=== PATIENT | male | born 1960 | race African-American/Black ===

== ENCOUNTER → 2018-02-13 | Outpatient (CLI) | payer BC ==
--- NOTE | 2018-02-13 15:57 | RADIOLOGY REPORT (SQ) ---
EXAM DESCRIPTION: CHEST PA/LATERAL COMPLETED DATE/TIME: 02/13/2018 3:44 pm REASON FOR STUDY: SHORTNESS OF BREATH COMPARISON: 02/25/2018 EXAM PARAMETERS: NUMBER OF VIEWS: two views TECHNIQUE: Digital Frontal and Lateral radiographic views of the chest acquired. RADIATION DOSE: NA LIMITATIONS: none FINDINGS: LUNGS AND PLEURA: No opacities, masses or pneumothorax. No pleural effusion. MEDIASTINUM AND HILAR STRUCTURES: No masses or contour abnormalities. HEART AND VASCULAR STRUCTURES: Stable appearance. No evidence for failure. BONES: No acute findings. HARDWARE: None in the chest. OTHER: No other significant finding. IMPRESSION: 1 No significant interval changes since the previous examination dated 02/25/2011. No ac bala pulmonary findings. TECHNICAL DOCUMENTATION: JOB ID: [id number] [employer]- All Rights Reserved Reading location - IP/workstation name: [email or web address]
== END ==
LOC: OD 15:34
PROVIDERS: ATTEND Internal Medicine
DX: R06.02 Shortness of breath (principal)
CPT/HCPCS: 71046

== ENCOUNTER → 2018-04-17 | Outpatient (CLI) | payer BC ==
[2018-04-17 13:24] VITALS: BP 138/84
--- NOTE | 2018-04-18 07:47 | XCELERA REPORT ---
[address] [address] Lower Extremity Venous Evaluation Name: JAIRO ALLEN Age: 57 yrs Gender: Male : 1960 Patient Status: Outpatient Patient Location: Study Date: 04/17/2018 02:26 PM Procedure: Color flow and duplex imaging of the veins of the left lower extremity as well as the right Common Femoral vein. Reason For Study: LLE LOCALIZED SWELLING Ordering Physician: YAZMIN NEWBY Performed By: Yoselin Hastings Right Sided Venous Evaluation The right common femoral vein is fully compressible. Spontaneous and phasic flow is present in the right common femoral vein. Left Sided Venous Evaluation Normal vessel filling wall to wall, compression and augmentation as well as Colour flow down to the infrageniculate veins. Interpretation Summary No duplex evidence of DVT or obstruction in the left lower extremity nor in the right Common Femoral vein. : YAZMIN NEWBY > Rip Orourke
== END ==
LOC: SP 13:45
PROVIDERS: ATTEND Internal Medicine
DX: R22.42 Localized swelling, mass and lump, left lower limb (principal)
CPT/HCPCS: 93971

== ENCOUNTER 2018-08-23 12:27 | Observation (INO) | payer BC ==
[2018-08-23 14:06] LABS: ABSOLUTE BASOPHILS # (AUTO) 0.1 10^3/uL (0.0-0.2); ABSOLUTE EOSINOPHILS # (AUTO) 0.1 10^3/uL (0.0-0.6); ABSOLUTE LYMPHOCYTES (AUTO) 1.7 10^3/uL (0.5-4.7); ABSOLUTE MONOCYTES (AUTO) 0.4 10^3/uL (0.1-1.4); BASOPHILS % (AUTO) 1.3 % (0-2); EOSINOPHILS % (AUTO) 1.8 % (0-6); HEMATOCRIT 41.7 % (37.9-51.0); HEMOGLOBIN 14.2 g/dL (13.5-17.0); LYMPHOCYTES % (AUTO) 32.4 % (13-45); MEAN CORPUSCULAR HEMOGLOBIN 28.1 pg (27.0-33.4); MEAN CORPUSCULAR VOLUME 83 fl (80-97); MONOCYTES % (AUTO) 7.9 % (3-13); PLATELET COUNT 259 10^3/uL (150-450); RED BLOOD COUNT 5.05 10^6/uL (4.35-5.55); RED CELL DISTRIBUTION WIDTH 13.9 % (11.5-14.0); SEGMENTED NEUTROPHILS % (AUTO) 56.6 % (42-78); TOTAL CELLS COUNTED % (AUTO) 100 %; WHITE BLOOD COUNT 5.3 10^3/uL (4.0-10.5)
--- NOTE | 2018-08-23 14:21 | RADIOLOGY REPORT (SQ) ---
EXAM DESCRIPTION: CHEST 2 VIEWS COMPLETED DATE/TIME: 08/23/2018 2:11 pm REASON FOR STUDY: chest pain COMPARISON: 02/25/2010 EXAM PARAMETERS: NUMBER OF VIEWS: two views TECHNIQUE: Digital Frontal and Lateral radiographic views of the chest acquired. RADIATION DOSE: NA LIMITATIONS: none FINDINGS: LUNGS AND PLEURA: No opacities, masses or pneumothorax. No pleural effusion. MEDIASTINUM AND HILAR STRUCTURES: No masses or contour abnormalities. HEART AND VASCULAR STRUCTURES: Stable heart size. No evidence for failure. BONES: No acute findings. HARDWARE: None in the chest. OTHER: No other significant finding. IMPRESSION: NO ACUTE RADIOGRAPHIC FINDING IN THE CHEST. TECHNICAL DOCUMENTATION: JOB ID: [id number] [employer]- All Rights Reserved Reading location - IP/workstation name: [email or web address]
[2018-08-23 14:25] LABS: ALANINE AMINOTRANSFERASE 30 U/L (21-72); ALBUMIN 3.9 g/dL (3.5-5.0); ALKALINE PHOSPHATASE 69 U/L (38-126); ANION GAP 10 (5-19); ASPARTATE AMINO TRANSFERASE 24 U/L (17-59); BILIRUBIN,DIRECT 0.3 mg/dL (0.0-0.4); BILIRUBIN,TOTAL 0.5 mg/dL (0.2-1.3); BLOOD UREA NITROGEN 14 mg/dL (7-20); CALCIUM 9.6 mg/dL (8.4-10.2); CARBON DIOXIDE 28 mmol/L (22-30); CHLORIDE 103 mmol/L (98-107); CREATINE KINASE 168 U/L (55-170); GLUCOSE 137 mg/dL (75-110); POTASSIUM 4.4 mmol/L (3.6-5.0); SODIUM 140.7 mmol/L (137-145); TOTAL PROTEIN 6.8 g/dL (6.3-8.2)
[2018-08-23 14:44] LABS: CREATINE KINASE MB 0.81 ng/mL (<4.55)
[2018-08-23 14:49] LABS: TROPONIN I < 0.012 ng/mL
[2018-08-23 14:57] LABS: THYROID STIMULATING HORMONE 0.67 uIU/mL (0.47-4.68)
[2018-08-23] MEDS ORDERED: ASPIRIN 81 MG TABLET, ENT COATED PO SCH (17:00)
[2018-08-23] MEDS: METFORMIN HCL 500 MG TABLET PO SCH (17:24)
[2018-08-23] MEDS: ASPIRIN 81 MG TABLET, ENT COATED PO SCH (17:25)
[2018-08-23 19:01] LABS: APPEARANCE,URINE CLEAR; BILIRUBIN,URINE NEGATIVE (NEGATIVE); COLOR,URINE YELLOW; GLUCOSE, URINE NEGATIVE (NEGATIVE); KETONES,URINE NEGATIVE (NEGATIVE); LEUKOCYTE ESTERASE,URINE NEGATIVE (NEGATIVE); NITRITE,URINE NEGATIVE (NEGATIVE); PROTEIN,URINE NEGATIVE (NEGATIVE)
[2018-08-23 21:49] LABS: CREATINE KINASE MB 0.74 ng/mL (<4.55)
[2018-08-23 21:57] LABS: TROPONIN I < 0.012 ng/mL
[2018-08-23] MEDS ORDERED: ATORVASTATIN CALCIUM 40 MG TABLET PO SCH (22:00)
[2018-08-24 05:55] LABS: CREATINE KINASE MB 0.59 ng/mL (<4.55)
[2018-08-24 05:56] LABS: TROPONIN I < 0.012 ng/mL
--- NOTE | 2018-08-24 09:00 | EKG REPORT ---
SEVERITY:- ABNORMAL ECG - SINUS RHYTHM NONSPECIFIC T ABNORMALITIES, DIFFUSE LEADS : Confirmed by: Desi Dc 24-Aug-2018 08:59:54
[2018-08-24] MEDS: METFORMIN HCL 500 MG TABLET PO SCH (10:26)
[2018-08-24] MEDS: ASPIRIN 81 MG TABLET, ENT COATED PO SCH (10:26)
[2018-08-24] MEDS ORDERED: AMINOPHYLLINE INJ/PF 250 MG/10 ML SDV IV ONE (14:03)
[2018-08-24] MEDS ORDERED: REGADENOSON INJ 0.4 MG/5 ML DISP.SYRIN IV ONE (14:03)
[2018-08-24 14:09] LABS: CREATINE KINASE MB 0.69 ng/mL (<4.55)
[2018-08-24 14:13] LABS: TROPONIN I < 0.012 ng/mL
--- NOTE | 2018-08-24 14:36 | DRAGON STRESS TEST REPORT ---
INTRAVENOUS LEXISCAN CARDIOLITE STRESS TEST USING SINGLE PHOTON EMMISION COMPUTERIZED TOMOGRAPHIC. DATE OF PROCEDURE: August 24, 2018, INDICATION : Chest pain CARDIAC RISK FACTORS: Diabetes, hypertension RESTING EKG: Sinus rhythm, minor nonspecific T wave inversion STRESS EKG: No significant ST segment changes noted with LexiScan bolus REASON FOR TERMINATION: Protocol. PROCEDURE REPORT: Baseline heart rate 85 beats per minute with blood pressure of 135/84. Patient had no significant complaints. Patient was bolused with Lexiscan 0.4 mg intravenously followed by saline bolus. Heart rate at 2 minutes post bolus 116 with a blood pressure of 165/82. 3 minutes post bolus heart rate 85 with blood pressure of 136/82. No significant EKG changes were noted. Patient had no significant complaints during the procedure or postprocedure. CONCLUSIONS: Normal EKG and hemodynamic response to IV LexiScan. NUCLEAR DATA: At rest the patient was given 10.79 millicuries of technetium 99 sestamibi injected intravenously. As per protocol rest gated SPECT images were obtained. On day of stress test, the patient was given intravenous LexiScan at a dose of 0.4 mg in 5 mL intravenously, followed by flush with normal saline. Subsequently the stress dose of 31.0 millicuries of technetium 99 sestamibi was injected intravenously. As per protocol stress gated images were obtained. NUCLEAR INTERPRETATION: Both raw and processed data were used for interpretation. Visual, qualitative, computer-generated quantitative data was used. There was good myocardial uptake of technetium compound. Motion artifact and soft tissue attenuations were noted. Increased visceral uptake was noted. No definitive areas of transient perfusion defect noted, No definitive areas of fixed perfusion defect or scars noted. EKG gated imaging showed LV EF at 53 %, rest and stress gated EF similar visually. T. I D. ratio was 1.07. Lung heart ratio noted to be within normal limits 0.35. No significant extracardiac and abnormal radiotracer activities were noted. RV free wall uptake was noted to be WNL. IMPRESSION: Also refer to comments under nuclear interpretation. Also test results needs to be interpreted in the context of pretest probability. 1. No definitive areas of transient perfusion defect noted. 2. There is no definitive scintigraphic evidence of myocardial infarction/scar. 3. EKG gated imaging shows left ventricular ejection fraction of approx. 53 %. 4. Clinical correlation requested as worse disease and or balanced ischemia could be missed. In approximately 10% of the cases Lexiscan may not cause adequate vasodilatory stress. RECOMMENDATIONS: Aggressive risk factor modification and medical management. Further evaluation may be needed if continued symptoms or other high risk indicators are noted on clinical evaluation. Close cardiology follow-up is also recommended. Clinical correlation with echocardiogram derived ejection fraction. Inability to exercise by itself can lead to increased cardiovascular event risks. Consider cardiology consultation and or follow-up if clinically indicated. I am available for cardiology evaluation and consultation if requested by the mailroom courier, unless patient already has a research engineer. Dr. Bob Dc. MRCP Board certified in cardiology and sleep medicine. Board certified in nuclear cardiology, adult echocardiography. MARTY
--- NOTE | 2018-08-24 16:31 | RADIOLOGY REPORT (SQ) ---
EXAM DESCRIPTION: U/S ABDOMEN LIMITED W/O DOP COMPLETED DATE/TIME: 08/24/2018 3:52 pm REASON FOR STUDY: chest pain COMPARISON: Abdominal ultrasound 01/14/2009 TECHNIQUE: Dynamic and static grayscale images acquired of the abdomen and recorded on PACS. Additio nal selected color Doppler and spectral images recorded. LIMITATIONS: Midline bowel gas FINDINGS: PANCREAS: Not visualized due to poor acoustic window from midline bowel gas LIVER: Normal size, diffusely echogenic from fatty infiltration or diffuse hepatocellular disease. LIVER VASCULATURE: Normal directional flow of the main portal vein and hepatic veins. GALLBLADDER: No stones. Normal wall thickness. No pericholecystic fluid. ULTRASOUND-DETECTED CERVANTES'S SIGN: Negative. INTRAHEPATIC DUCTS AND COMMON DUCT: CBD and intrahepatic ducts normal caliber. No filling defects. D istal most common duct at the pancreatic head not well seen INFERIOR VENA CAVA: Normal flow. AORTA: No aneurysm. RIGHT KIDNEY: Normal size. Normal echogenicity. No solid or suspicious masses. No hydronephrosis. No calcifications. PERITONEAL AND RIGHT PLEURAL SPACE: No ascites or effusions. OTHER: No other significant findings. IMPRESSION: Fatty liver No gallstones gallbladder wall thickening or pericholecystic fluid Midline pancreas not well seen TECHNICAL DOCUMENTATION: JOB ID: [id number] [employer] All Rights Reserved Reading location - IP/workstation name: STATEMENT CLERKS MANAGER[facility]
[2018-08-24 16:48] VITALS: BP 153/90
--- NOTE | 2018-08-24 17:22 | PDOC H&P ---
History of Present Illness Admission Date/PCP: 08/23/18 12:27 YAZMIN NEWBY MD History of Present Illness: JAIRO ALLEN is a 58 year old male, he came to the office today for evaluation of chest pain, the chest pain is atypical, it is not provoked by activity and relieved by rest, the chest pain is aggravated with food intake, he has risk factors for ischemic heart disease, is a diabetic, he has hypertension , sedentary lifestyle he was admitted for observation and management, 3 sets of cardiac enzymes negative for acute NV, 12-lead EKG was sinus rhythm there is no acute change. A Lexiscan nuclear stress test was done he demonstrated no definitive areas of transit perfusion no scintigraphic evidence of myocardial infarction. Abdominal sonogram was done, it was negative for gallstones, was found to have fatty liver. Past Medical History Endocrine Medical History: Reports: Diabetes Mellitus Type 2 GI Medical History: Reports: Gastroesophageal Reflux Disease Social History Smoking Status: Former Smoker Family History Family History: Reviewed & Not Pertinent Parental Family History Reviewed: Yes Children Family History Reviewed: Yes Sibling(s) Family History Reviewed.: Yes Medication/Allergy Home Medications: Aspirin [Ecotrin 81 mg EC Tablet] 81 mg PO DAILY 08/23/18 Atorvastatin Calcium [Lipitor 40 mg Tablet] 40 mg PO QHS 08/23/18 Metformin HCl [Glucophage] 1,000 mg PO BID 08/23/18 Omeprazole Magnesium [Acid Buncher Hand] 20 mg PO DAILY #90 capsule. 08/24/18 Allergies/Adverse Reactions: No Known Allergies Allergy (Verified 04/17/18 13:15) Review of Systems Constitutional: ABSENT: chills, fever(s), headache(s), weight gain, weight loss Eyes: ABSENT: visual disturbances Ears: ABSENT: hearing changes Cardiovascular: PRESENT: chest pain. ABSENT: dyspnea on exertion, edema, orthropnea, palpitations Respiratory: ABSENT: cough, hemoptysis Gastrointestinal: ABSENT: abdominal pain, constipation, diarrhea, hematemesis, hematochezia, nausea, vomiting Genitourinary: ABSENT: dysuria, hematuria Musculoskeletal: ABSENT: joint swelling Integumentary: ABSENT: rash, wounds Neurological: ABSENT: abnormal gait, abnormal speech, confusion, dizziness, focal weakness, syncope Psychiatric: ABSENT: anxiety, depression, homidical ideation, suicidal ideation Endocrine: ABSENT: cold intolerance, heat intolerance, menstrual abnormalities, polydipsia, polyuria Hematologic/Lymphatic: ABSENT: easy bleeding, easy bruising, lymphadenopathy Physical Exam Vital Signs: Temp Pulse Resp BP Pulse Ox 97.6 F 78 17 153/90 H 99 08/24/18 15:55 08/24/18 15:55 08/24/18 15:55 08/24/18 15:55 08/24/18 15:55 Intake & Output 08/23/18 08/24/18 08/25/18 06:59 06:59 06:59 Intake Total 475 340 Balance 475 340 Weight 105.8 kg General appearance: PRESENT: no acute distress, well-developed, well-nourished Head exam: PRESENT: atraumatic, normocephalic Eye exam: PRESENT: conjunctiva pink, EOMI, PERRLA Ear exam: PRESENT: normal external ear exam Mouth exam: PRESENT: moist, tongue midline Neck exam: PRESENT: full ROM Respiratory exam: PRESENT: clear to auscultation misha Cardiovascular exam: PRESENT: RRR, +S1, +S2 Pulses: PRESENT: normal dorsalis pedis pul, +2 pedal pulses bilateral Vascular exam: PRESENT: normal capillary refill GI/Abdominal exam: PRESENT: normal bowel sounds, soft Rectal exam: PRESENT: deferred Neurological exam: PRESENT: alert, awake, oriented to person, oriented to place , oriented to time, oriented to situation, CN II-XII grossly intact Psychiatric exam: PRESENT: appropriate affect, normal mood Skin exam: PRESENT: dry, intact, warm Results Laboratory Results: 08/23/18 13:57 08/23/18 13:57 08/23/18 17:30 Urine Color YELLOW Urine Appearance CLEAR Urine pH 6.0 Ur Specific [place] 1.020 Urine Protein NEGATIVE Urine Glucose (UA) NEGATIVE Urine Ketones NEGATIVE Urine Blood NEGATIVE Urine Nitrite NEGATIVE Ur Leukocyte Esterase NEGATIVE Urine WBC (Auto) 1 Urine RBC (Auto) 1 08/23/18 08/23/18 08/23/18 13:57 13:57 21:05 Creatine Kinase 168 152 CK-MB (CK-2) 0.81 Troponin I < 0.012 08/23/18 08/24/18 08/24/18 21:05 05:21 05:21 Creatine Kinase 132 CK-MB (CK-2) 0.74 0.59 Troponin I < 0.012 < 0.012 08/24/18 08/24/18 13:04 13:04 Creatine Kinase 136 CK-MB (CK-2) 0.69 Troponin I < 0.012 Impressions: Chest X-Ray 08/23/18 00:00 IMPRESSION: NO ACUTE RADIOGRAPHIC FINDING IN THE CHEST. Abdomen Ultrasound 08/24/18 00:00 IMPRESSION: Fatty liver No gallstones gallbladder wall thickening or pericholecystic fluid Midline pancreas not well seen Assessment & Plan - Diagnosis (1) Chest pain Qualifiers: Chest pain type: unspecified Qualified Code(s): R07.9 - Chest pain, unspecified Is this a current diagnosis for this admission?: Yes Plan: Patient was admitted for the management of chest pain, the chest pain is atypical in character
--- NOTE | 2018-08-24 17:25 | PDOC DISCHARGE SUMMARY ---
General - Admit/Disc Date/PCP Admission Date/Primary Care Provider: 08/23/18 12:27 YAZMIN NEWBY MD Discharge Date: 08/31/18 - Discharge Diagnosis (1) Chest pain Is this a current diagnosis for this admission?: Yes (2) Type 2 diabetes mellitus Is this a current diagnosis for this admission?: Yes (3) Fatty liver Is this a current diagnosis for this admission?: Yes - Additional Information Prescriptions: Omeprazole Magnesium [Acid Wax Coating Machine Tender] 20 mg PO DAILY #90 capsule. Home Medications: Aspirin [Ecotrin 81 mg EC Tablet] 81 mg PO DAILY 08/23/18 Atorvastatin Calcium [Lipitor 40 mg Tablet] 40 mg PO QHS 08/23/18 Metformin HCl [Glucophage] 1,000 mg PO BID 08/23/18 Omeprazole Magnesium [Acid Wax Coating Machine Tender] 20 mg PO DAILY #90 capsule. 08/24/18 History of Present Illness History of Present Illness: JAIRO ALLEN is a 58 year old male, he came to the office today for evaluation of chest pain, the chest pain is atypical, it is not provoked by activity and relieved by rest, the chest pain is aggravated with food intake, he has risk factors for ischemic heart disease, is a diabetic, he has hypertension , sedentary lifestyle he was admitted for observation and management, 3 sets of cardiac enzymes negative for acute GA, 12-lead EKG was sinus rhythm there is no acute change. A Lexiscan nuclear stress test was done he demonstrated no definitive areas of transit perfusion no scintigraphic evidence of myocardial infarction. Abdominal sonogram was done, it was negative for gallstones, was found to have fatty liver. Hospital Course Hospital Course: Patient was admitted for the management of chest pain, Cardiolite stress test was negative for acute ischemia, ultrasound of the abdomen was done there was no gallstone positive for fatty liver. Physical Exam Vital Signs: Temp Pulse Resp BP Pulse Ox 97.6 F 78 17 153/90 H 99 08/24/18 15:55 08/24/18 15:55 08/24/18 15:55 08/24/18 15:55 08/24/18 15:55 Intake & Output 08/23/18 08/24/18 08/25/18 06:59 06:59 06:59 Intake Total 475 340 Balance 475 340 Weight 105.8 kg General appearance: PRESENT: no acute distress, well-developed, well-nourished Head exam: PRESENT: atraumatic, normocephalic Eye exam: PRESENT: conjunctiva pink, EOMI, PERRLA Ear exam: PRESENT: normal external ear exam Mouth exam: PRESENT: moist, tongue midline Neck exam: PRESENT: full ROM Respiratory exam: PRESENT: clear to auscultation misha Cardiovascular exam: PRESENT: RRR, +S1, +S2 Pulses: PRESENT: normal dorsalis pedis pul, +2 pedal pulses bilateral Vascular exam: PRESENT: normal capillary refill GI/Abdominal exam: PRESENT: normal bowel sounds, soft Rectal exam: PRESENT: deferred Neurological exam: PRESENT: alert, awake, oriented to person, oriented to place , oriented to time, oriented to situation, CN II-XII grossly intact Psychiatric exam: PRESENT: appropriate affect, normal mood Skin exam: PRESENT: dry, intact, warm Results Laboratory Results: 08/23/18 13:57 08/23/18 13:57 08/23/18 17:30 Urine Color YELLOW Urine Appearance CLEAR Urine pH 6.0 Ur Specific [place] 1.020 Urine Protein NEGATIVE Urine Glucose (UA) NEGATIVE Urine Ketones NEGATIVE Urine Blood NEGATIVE Urine Nitrite NEGATIVE Ur Leukocyte Esterase NEGATIVE Urine WBC (Auto) 1 Urine RBC (Auto) 1 08/23/18 08/23/18 08/23/18 13:57 13:57 21:05 Creatine Kinase 168 152 CK-MB (CK-2) 0.81 Troponin I < 0.012 08/23/18 08/24/18 08/24/18 21:05 05:21 05:21 Creatine Kinase 132 CK-MB (CK-2) 0.74 0.59 Troponin I < 0.012 < 0.012 08/24/18 08/24/18 13:04 13:04 Creatine Kinase 136 CK-MB (CK-2) 0.69 Troponin I < 0.012 Impressions: Chest X-Ray 08/23/18 00:00 IMPRESSION: NO ACUTE RADIOGRAPHIC FINDING IN THE CHEST. Abdomen Ultrasound 08/24/18 00:00 IMPRESSION: Fatty liver No gallstones gallbladder wall thickening or pericholecystic fluid Midline pancreas not well seen Qualifiers - * PATIENT BEING DISCHARGED WITH ANY OF THE FOLLOWING DIAGNOSIS: No
[2018-08-24] MEDS ORDERED: LANSOPRAZOLE 30 MG TAB.RAP.DR PO ONE (17:45)
== END 2018-08-24 18:27 | disposition home or self-care (01) ==
LOC: 3W 12:27
PROVIDERS: ADMIT Internal Medicine; ATTEND Internal Medicine
DX: R07.89 Other chest pain (principal); E11.9 Type 2 diabetes mellitus without complications; K76.0 Fatty (change of) liver, not elsewhere classified; I10 Essential (primary) hypertension; Z79.82 Long term (current) use of aspirin; Z79.899 Other long term (current) drug therapy; Z79.84 Long term (current) use of oral hypoglycemic drugs; Z87.891 Personal history of nicotine dependence
CPT/HCPCS: 36415 ×2; 84439; 82553 ×2; 82962 ×2; 82550 ×2; 84443; 85025; 80076; 80048; 81001; 84484 ×2; 83036; 93017; 71046; 76705; 78452; 93005; 93010; A9500; J2785; J0280; G0378; G0379

== ENCOUNTER → 2020-04-10 | Outpatient (CLI) | payer BC ==
--- NOTE | 2020-04-10 15:06 | RADIOLOGY REPORT (SQ) ---
EXAM DESCRIPTION: KNEE LEFT 2 VIEWS IMAGES COMPLETED DATE/TIME: 04/10/2020 2:37 pm REASON FOR STUDY: PAIN IN LEFT KNEE M25.562 PAIN IN LEFT KNEE COMPARISON: None. NUMBER OF VIEWS: Two views. TECHNIQUE: AP and lateral radiographic images acquired of the left knee. LIMITATIONS: None. FINDINGS: MINERALIZATION: Normal. BONES: No acute fracture or dislocation. No worrisome bone lesions. JOINT: There are tiny posterior patellar osteophytes. SOFT TISSUES: No soft tissue swelling. No radio-opaque foreign body. OTHER: No other significant finding. IMPRESSION: Minimal patellofemoral degenerative joint changes. TECHNICAL DOCUMENTATION: JOB ID: [id number] [employer]- All Rights Reserved Reading location - IP/workstation name: [email or web address]
== END ==
LOC: OD 12:15
PROVIDERS: ATTEND Internal Medicine
DX: M25.762 Osteophyte, left knee (principal); M25.562 Pain in left knee